=== PATIENT | male | born 1955 ===

== ENCOUNTER → 2022-10-16 06:00 | Outpatient (CLI) | payer OTHER ==
[~2022-10-16] VITALS: Ht 175.3 cm; Wt 74.4 kg
[~2022-10-16 06:00] MED LIST: ALPRAZOLAM ODT0.5 MG PO; CHILDREN'S ASPI81 MG PO; COZAAR25 MG PO; GLUCOTROL XL5 MG PO; HORIZANT300 MG PO; LEVO-T25 MCG PO; RISPERDAL0.5 MG PO; ZOLOFT50 MG PO
== END | disposition home or self-care (01) ==
LOC: LAB 06:00 → ADM 10:45 → CIR.AMB 10-18 07:00 → EDSTATUS 10-18 10:45 → CIR.AMB 10-18 10:45
PROVIDERS: ATTEND Colon & Rectal Surgery
DX: K64.2 Third degree hemorrhoids (principal); K64.4 Residual hemorrhoidal skin tags; I10 Essential (primary) hypertension; Z20.822 Contact with and (suspected) exposure to COVID-19; Z03.818 Encounter for observation for suspected exposure to other biological agents ruled out